=== PATIENT | female | born 1945 | race Caucasian/White ===

== ENCOUNTER 2018-07-05 16:10 | Inpatient (IN) | payer MEDICARE ==
[~2018-07-05] VITALS: Ht 152.4 cm; Wt 80.1 kg
--- NOTE | 2018-07-05 16:20 | NUR ---
REPORT RECEIVED CARE ASSUMED. 73 YR OLD FEMALE TRANSFERRED FROM [facility]. PT SEEN FOR GENERALIZED JOINT PAIN FOR 5 DAYS, "COULDNT TAKE IT ANY MORE" PT WAS HYPOTENSIVE. PT RECEIVED 3 L NS IN [facility] AND 500MLS NS IN [facility]. PT WITH OXYGEN [address] 20J IV IN LAC. DENIES PAIN " LONG I DONT MOVE. PT STATES THE "BACK OF MY HEAD FEELS LIKE I HAVE A 5 GALLON BUCKET OF WATER BACK THERE"
[2018-07-05] MEDS ORDERED: SODIUM CHLORIDE FLUSH 10ML SYR IVF ONE (16:30)
--- NOTE | 2018-07-05 16:49 | NUR ---
PT ASSISTED TO BSC. MOVES SLOWLY, INCREASED C/O PAIN WITH MOVEMENT. PT ABLE TO PROVIDE URINE SPECIMAN. LAB AT BEDSIDE TO DRAW LABS. PTS DAUGHTER AT BEDSIDE. UPDATED ON POC. NO OTHER NEEDS EXPRESSED AT THIS TIME.
[2018-07-05] MEDS ORDERED: SODIUM CHLORIDE FLUSH 10ML SYR IVF PRN (17:00)
[2018-07-05 17:07] LABS: MICROSCOPIC NOT IND
[2018-07-05 17:08] LABS: BASOPHILS # (AUTO) 0.03 x10^3/uL (0-0.1); BASOPHILS % (AUTO) 0 % (0-1); EOSINOPHILS # (AUTO) 0.04 x10^3/uL (0-0.4); EOSINOPHILS % (AUTO) 0 % (1-7); LYMPHOCYTES # (AUTO) 1.45 x10^3/uL (1-3.4); LYMPHOCYTES % (AUTO) 11 % (22-44); MD NO; MEAN CORPUSCULAR HEMOGLOBIN 28.1 pg (27.0-34.8); MEAN CORPUSCULAR VOLUME 87.9 fL (80-100); MEAN PLATELET VOLUME 6.9 fL (7.4-10.4); MONOCYTES # (AUTO) 0.98 x10^3/uL (0.2-0.8); MONOCYTES % (AUTO) 8 % (2-9); NEUTROPHILS # (AUTO) 10.39 x10^3/uL (1.8-6.8); NEUTROPHILS % (AUTO) 81 % (42-75); PLATELET COUNT 417 x10^3/uL (130-400); RED BLOOD COUNT 4.29 x10^6/uL (3.82-5.3); RED CELL DISTRIBUTION WIDTH 13.7 % (9.6-15.2)
[2018-07-05 17:08] LABS: CULTURE INDICATED? NO
[2018-07-05 17:10] LABS: HCT (SEDRATE) 37.4 % (34.6-47.8)
[2018-07-05] MEDS ORDERED: TRIA1TAB3 PO (17:11)
[2018-07-05] MEDS ORDERED: PRED10TA PO (17:11)
--- NOTE | 2018-07-05 17:11 | NUR ---
CALL PLACED TO [facility] [phone] TO CONFIRM PT PRESCRIPTIONS AND DOSAGES. PT STATES "I ONLY TAKE 1 BLOOD PRESSURE MEDICATION.
[2018-07-05 17:17] LABS: INTERNATIONAL NORMALIZED RATIO 1.08 (0.93-1.1); PROTHROMBIN TIME 11.4 Seconds (9.6-11.5)
[2018-07-05 17:19] LABS: ALBUMIN 2.9 g/dL (3.4-5.0); ANION GAP 11 mmol/L (5-15); CALCIUM 8.4 mg/dL (8.5-10.1); CHLORIDE 107 mmol/L (98-107)
[2018-07-05] MEDS ORDERED: MULT-290 PO (17:23)
[2018-07-05] MEDS ORDERED: ASPI-496 PO (17:23)
[2018-07-05 17:27] LABS: ALANINE AMINOTRANSFERASE 25 U/L (12-78); ALKALINE PHOSPHATASE 88 U/L (45-117); BILIRUBIN,TOTAL 0.5 mg/dL (0.2-1.0); CREATININE 1.45 mg/dL (0.55-1.02); TOTAL PROTEIN 6.6 g/dL (6.4-8.2)
--- NOTE | 2018-07-05 17:35 | NUR ---
PT DENIES TAKING DYAZIDE/HCTZ, TAKES LOSARTAN.
[2018-07-05] MEDS ORDERED: LOSA1TAB22 PO (17:36)
--- NOTE | 2018-07-05 18:56 | NUR ---
Report given to EMMA Rodriguez
--- NOTE | 2018-07-05 18:59 | NUR ---
BEDSIDE REPORT TO JULIO CARTER.
[2018-07-05] MEDS ORDERED: KETOROLAC 30 MG/1 ML ONE (19:19)
[2018-07-05] MEDS ORDERED: ONDANSETRON 2MG/ML, 2ML ONE (19:23)
[2018-07-05] MEDS ORDERED: ONDANSETRON 2MG/ML, 2ML IVPush ONE (19:30)
[2018-07-05] MEDS ORDERED: KETOROLAC 30 MG/1 ML IVPush ONE (19:30)
--- NOTE | 2018-07-05 20:41 | NUR ---
PT RESTING IN ROOM. PT PLACED ON AIR MATRESS FOR COMFORT. NO ACUTE DISTRES NOTED. CALL LIGHT IN PLACE. FAMILY AT BEDSIDE. WILL CONTINUE TO MONITOR.
--- NOTE | 2018-07-05 21:48 | NUR ---
Spoke with hospitalist waiting for orders.
--- NOTE | 2018-07-05 22:14 | NUR ---
PT HAS BEEN SEEN BY DR SAHA PT RESTING IN ROOM. REGULAR RESP. NO ACUTE. DISTRESS NOTED. CALL LIGHT IN PLACE. WILL CONTINUE TO MONITOR.
[2018-07-05] MEDS ORDERED: SODIUM CHLORIDE 0.9% 1,000 ML IV SCH (22:16)
[2018-07-05] MEDS ORDERED: ACETAMINOPHEN 500 MG TABLET PO PRN (22:30)
[2018-07-05 23:29] VITALS: BP 99/54
[2018-07-05] MEDS: ENOXAPARIN 40 MG/0.4 ML SQ SCH (23:52)
[2018-07-06 00:44] VITALS: BP 94/52
[2018-07-06 02:20] VITALS: BP 94/55
[2018-07-06 04:33] VITALS: BP 111/60
[2018-07-06 05:25] LABS: BASOPHILS # (AUTO) 0.03 x10^3/uL (0-0.1); BASOPHILS % (AUTO) 0 % (0-1); EOSINOPHILS # (AUTO) 0.35 x10^3/uL (0-0.4); EOSINOPHILS % (AUTO) 4 % (1-7); LYMPHOCYTES # (AUTO) 1.86 x10^3/uL (1-3.4); LYMPHOCYTES % (AUTO) 20 % (22-44); MD NO; MEAN CORPUSCULAR HEMOGLOBIN 29.5 pg (27.0-34.8); MEAN CORPUSCULAR HGB CONC 33.5 g/dL (32.4-35.8); MEAN CORPUSCULAR VOLUME 88.1 fL (80-100); MEAN PLATELET VOLUME 7.3 fL (7.4-10.4); MONOCYTES % (AUTO) 10 % (2-9); NEUTROPHILS # (AUTO) 6.13 x10^3/uL (1.8-6.8); NEUTROPHILS % (AUTO) 66 % (42-75); PLATELET COUNT 358 x10^3/uL (130-400); RED BLOOD COUNT 3.82 x10^6/uL (3.82-5.3); RED CELL DISTRIBUTION WIDTH 13.6 % (9.6-15.2)
[2018-07-06 05:37] LABS: CHLORIDE 108 mmol/L (98-107)
[2018-07-06 05:57] LABS: ALANINE AMINOTRANSFERASE 22 U/L (12-78); ALBUMIN 2.6 g/dL (3.4-5.0); ALKALINE PHOSPHATASE 79 U/L (45-117); ANION GAP 9 mmol/L (5-15); BILIRUBIN,TOTAL 0.3 mg/dL (0.2-1.0); CALCIUM 8.3 mg/dL (8.5-10.1); CREATINE KINASE, TOTAL 47 U/L (26-192); CREATININE 1.16 mg/dL (0.55-1.02); TOTAL PROTEIN 5.9 g/dL (6.4-8.2)
[2018-07-06] MEDS: ASPIRIN 81 MG TABLET EC PO SCH (06:22)
[2018-07-06] MEDS: ONDANSETRON ODT 4 MG PO PRN ×3 (06:22→19:53)
[2018-07-06] MEDS: KETOROLAC 30 MG/1 ML IVPush PRN ×3 (06:22→19:53)
[2018-07-06 06:34] VITALS: BP 117/61
[2018-07-06] MEDS: MULTIVITAMINS/MINERALS TABLET PO SCH (08:08)
[2018-07-06] MEDS ORDERED: TEMPLATE NON-FORMULARY MED. (Losartan/Hydrochlorothiazide** (Losartan-Hctz 100-25 Mg Tab PO SCH (09:00)
[2018-07-06 13:50] VITALS: BP 115/57
[2018-07-06 19:56] VITALS: BP 134/67
[2018-07-06] MEDS: SODIUM CHLORIDE 0.9% 1,000 ML IV SCH (20:52)
[2018-07-06] MEDS: ENOXAPARIN 40 MG/0.4 ML SQ SCH (23:23)
[2018-07-07 02:38] VITALS: BP 114/73
[2018-07-07] MEDS: ONDANSETRON ODT 4 MG PO PRN ×4 (04:28→23:47)
[2018-07-07] MEDS: KETOROLAC 30 MG/1 ML IVPush PRN ×4 (04:28→23:47)
[2018-07-07 05:15] LABS: ALBUMIN 2.5 g/dL (3.4-5.0); ANION GAP 8 mmol/L (5-15); CHLORIDE 111 mmol/L (98-107); CREATININE 0.94 mg/dL (0.55-1.02)
[2018-07-07] MEDS: ASPIRIN 81 MG TABLET EC PO SCH (05:53)
[2018-07-07 07:01] VITALS: BP 119/65
[2018-07-07] MEDS ORDERED: MAGNESIUM SULFATE PMX 2GM/50ML 50 ML IV ONE (07:30)
[2018-07-07] MEDS: MULTIVITAMINS/MINERALS TABLET PO SCH (08:50)
[2018-07-07] MEDS ORDERED: LIDOCAINE 1%, 10ML IM ONE (09:00)
[2018-07-07 12:40] VITALS: BP 107/61
[2018-07-07] MEDS: SODIUM CHLORIDE 0.9% 1,000 ML IV SCH (15:02)
[2018-07-07 18:43] VITALS: BP 134/75
[2018-07-07] MEDS: ENOXAPARIN 40 MG/0.4 ML SQ SCH (23:48)
[2018-07-08 00:24] VITALS: BP 128/67
[2018-07-08] MEDS: ASPIRIN 81 MG TABLET EC PO SCH (05:51)
[2018-07-08] MEDS: SODIUM CHLORIDE 0.9% 1,000 ML IV SCH ×3 (05:51→20:21)
[2018-07-08] MEDS: ONDANSETRON ODT 4 MG PO PRN ×2 (05:51→12:53)
[2018-07-08] MEDS: KETOROLAC 30 MG/1 ML IVPush PRN ×3 (05:51→20:21)
[2018-07-08 06:33] VITALS: BP 129/72
[2018-07-08] MEDS: MULTIVITAMINS/MINERALS TABLET PO SCH (08:59)
[2018-07-08 12:06] VITALS: BP 132/72
[2018-07-08] MEDS: POLYETHYLENE GLYCOL 17 GM PACKET PO PRN (17:54)
[2018-07-08] MEDS: ACETAMINOPHEN 500 MG TABLET PO SCH ×3 (17:54→21:15)
[2018-07-08 19:10] LABS: RAPID INFLUENZA A Negative (Negative); RAPID INFLUENZA B Negative (Negative)
[2018-07-08 19:36] VITALS: BP 129/78
[2018-07-08] MEDS: ENOXAPARIN 40 MG/0.4 ML SQ SCH (20:21)
[2018-07-08] MEDS: ONDANSETRON 2MG/ML, 2ML IVPush PRN (20:21)
[2018-07-09 01:40] VITALS: BP 149/78
[2018-07-09] MEDS: ASPIRIN 81 MG TABLET EC PO SCH (04:40)
[2018-07-09] MEDS: ONDANSETRON 2MG/ML, 2ML IVPush PRN ×3 (04:40→23:15)
[2018-07-09] MEDS: KETOROLAC 30 MG/1 ML IVPush PRN ×4 (04:40→23:15)
[2018-07-09 05:14] LABS: HCT (SEDRATE) 32.5 % (34.6-47.8)
[2018-07-09 06:28] VITALS: BP 154/73
[2018-07-09] MEDS: MULTIVITAMINS/MINERALS TABLET PO SCH (09:00)
[2018-07-09] MEDS: POLYETHYLENE GLYCOL 17 GM PACKET PO PRN (09:44)
[2018-07-09] MEDS: ACETAMINOPHEN 500 MG TABLET PO SCH ×3 (10:30→20:36)
[2018-07-09 12:04] VITALS: BP 166/73
[2018-07-09] MEDS: CARVEDILOL 3.125 MG TABLET PO SCH (16:48)
[2018-07-09] MEDS: ISOSORBIDE DINITRATE 10 MG TABLET PO SCH ×2 (16:48→20:36)
[2018-07-09] MEDS: SODIUM CHLORIDE 0.9% 1,000 ML IV SCH (16:55)
[2018-07-09] MEDS: SENNA/DOCUSATE TABLET PO PRN (17:28)
[2018-07-09] MEDS: ONDANSETRON ODT 4 MG PO PRN (17:28)
[2018-07-09 17:34] VITALS: BP 141/82
[2018-07-09 18:43] VITALS: BP 122/62
[2018-07-09] MEDS: ENOXAPARIN 40 MG/0.4 ML SQ SCH (20:35)
[2018-07-10 01:17] VITALS: BP 141/76
[2018-07-10] MEDS: ACETAMINOPHEN 500 MG TABLET PO SCH ×2 (04:30→10:53)
[2018-07-10 04:54] LABS: BASOPHILS # (AUTO) 0.05 x10^3/uL (0-0.1); BASOPHILS % (AUTO) 0 % (0-1); EOSINOPHILS % (AUTO) 5 % (1-7); LYMPHOCYTES % (AUTO) 19 % (22-44); MD NO; MEAN CORPUSCULAR HEMOGLOBIN 29.4 pg (27.0-34.8); MEAN CORPUSCULAR HGB CONC 33.5 g/dL (32.4-35.8); MEAN CORPUSCULAR VOLUME 87.7 fL (80-100); MEAN PLATELET VOLUME 6.6 fL (7.4-10.4); MONOCYTES % (AUTO) 6 % (2-9); NEUTROPHILS # (AUTO) 7.27 x10^3/uL (1.8-6.8); NEUTROPHILS % (AUTO) 71 % (42-75); PLATELET COUNT 410 x10^3/uL (130-400); RED CELL DISTRIBUTION WIDTH 13.8 % (9.6-15.2)
[2018-07-10] MEDS: ASPIRIN 81 MG TABLET EC PO SCH (05:05)
[2018-07-10] MEDS: CARVEDILOL 3.125 MG TABLET PO SCH (05:05)
[2018-07-10] MEDS: SENNA/DOCUSATE TABLET PO PRN (05:07)
[2018-07-10 06:47] VITALS: BP 135/73
[2018-07-10] MEDS: KETOROLAC 30 MG/1 ML IVPush PRN (08:00)
[2018-07-10] MEDS: ONDANSETRON 2MG/ML, 2ML IVPush PRN (08:00)
[2018-07-10] MEDS: ISOSORBIDE DINITRATE 10 MG TABLET PO SCH (08:07)
[2018-07-10] MEDS: MULTIVITAMINS/MINERALS TABLET PO SCH (08:08)
[2018-07-10] MEDS: SODIUM CHLORIDE 0.9% 1,000 ML IV SCH (08:09)
[2018-07-10] MEDS ORDERED: ISOS10TA2 PO ×2 (09:57)
[2018-07-10] MEDS ORDERED: HYDR2TAB29 PO (09:57)
[2018-07-10] MEDS ORDERED: HYDR-3341 PO ×2 (09:57)
[2018-07-10] MEDS ORDERED: CARV3.1212 PO (09:57)
[2018-07-10] MEDS ORDERED: NAPR-857 PO (09:57)
[2018-07-10] MEDS ORDERED: ACET500T71 PO (09:57)
[2018-07-10] MEDS ORDERED: PRED20TA PO (09:57)
[2018-07-10 15:46] LABS: ANA SCREEN POSITIVE (Negative)
[2018-07-10 15:47] LABS: ANTI-NUCLEAR ANTIBODY PATTERN SPECKLED
== END 2018-07-10 11:35 | disposition home or self-care (01) | DRG 545 ==
LOC: ED 16:22 → EDIP 16:53 → 3NE 23:04 → DCLOUNGE 07-10 11:19
PROVIDERS: ADMIT Hospitalist; ATTEND Hospitalist
PROC: 0SJD3ZZ Inspection of Left Knee Joint, Percutaneous Approach (ICD-10-PCS; principal; 2018-07-07)
DX: M02.362 Reiter's disease, left knee (principal); E43 Unspecified severe protein-calorie malnutrition; N17.9 Acute kidney failure, unspecified; E87.2 Acidosis; M17.12 Unilateral primary osteoarthritis, left knee; E66.9 Obesity, unspecified; E83.42 Hypomagnesemia; I10 Essential (primary) hypertension; J44.9 Chronic obstructive pulmonary disease, unspecified; D72.829 Elevated white blood cell count, unspecified; I95.9 Hypotension, unspecified; E88.09 Other disorders of plasma-protein metabolism, not elsewhere classified; M62.838 Other muscle spasm; Z88.0 Allergy status to penicillin; Z90.49 Acquired absence of other specified parts of digestive tract; Z68.34 Body mass index [BMI] 34.0-34.9, adult; Z74.01 Bed confinement status; Z87.891 Personal history of nicotine dependence
CPT/HCPCS: 10030; 36415; 80048; 80053; 81003; 82040; 82330; 82550; 83690; 83735; 84100; 84550; 85025; 85610; 85651; 85730; 86038; 86039; 86063; 86140; 86430; 86480; 86747; 87040; 87400; 93005; 93306; 96374; 96375; G0378; J1650; J1885; J2405; J3490; Q0162; J3475; J7030; J7512

== ENCOUNTER 2018-07-13 09:00 | Inpatient (IN) | payer MEDICARE ==
[~2018-07-13] VITALS: Ht 152.4 cm; Wt 72.5 kg
[~2018-07-13 09:00] MED LIST: ACET500T71 PO; ASPI-496 PO; CARV3.1212 PO; HYDR-3341 PO; HYDR2TAB29 PO; ISOS10TA2 PO; LOSA1TAB22 PO; MULT-290 PO; NAPR-857 PO; PRED10TA PO; PRED20TA PO; TRIA1TAB3 PO
--- NOTE | 2018-07-13 09:22 | NUR ---
FIRST CONTACT WITH PATIENT, PRESENTS WITH SOB AND BILAT LEG/FACIAL SWELLING. PATIENT DC'D FROM [facility] LAST . PATIENT ALSO REPORTS HIGH BP 212/93, AT HOME. PATIENT SITTING IN GURNEY, DAUGHTER AT BEDSIDE. ISABEL PEREZ COMPLETED. CALL LIGHT WITHIN REACH.
--- NOTE | 2018-07-13 09:28 | NUR ---
PATIENT AMB WITH SLOW STEADY GAIT TO BATHROOM WITH DAUGHTER. PATIENT BACK TO ROOM, GROUND SERVICES INSTRUCTOR AND SPO2 ON PATIENT. ANA.
[2018-07-13] MEDS ORDERED: FUROSEMIDE 40 MG/4 ML IV ONE (10:00)
[2018-07-13] MEDS ORDERED: NITROGLYCERIN OINT 2%, 1GM TP ONE ×2 (10:00→10:01)
[2018-07-13] MEDS ORDERED: FUROSEMIDE 40 MG/4 ML ONE (10:01)
--- NOTE | 2018-07-13 10:13 | NUR ---
NEW ORDERS, IV ESTABLISHED, MEDICATIONS ADMINISTERED PER MD ORDER, VS UPDATED IN CHART.
[2018-07-13 10:21] LABS: THYROID STIMULATING HORMONE 1.55 mIU/L (0.358-3.740)
[2018-07-13 10:25] LABS: MEAN CORPUSCULAR HEMOGLOBIN 29.5 pg (27.0-34.8); MEAN CORPUSCULAR HGB CONC 33.6 g/dL (32.4-35.8); MEAN CORPUSCULAR VOLUME 87.9 fL (80-100); MEAN PLATELET VOLUME 6.8 fL (7.4-10.4); PLATELET COUNT 485 x10^3/uL (130-400); RED BLOOD COUNT 3.91 x10^6/uL (3.82-5.3); RED CELL DISTRIBUTION WIDTH 14.4 % (9.6-15.2)
[2018-07-13 10:34] LABS: TROPONIN I < 0.015 ng/mL (0.000-0.045)
--- NOTE | 2018-07-13 10:45 | NUR ---
PATIENT AMB TO BATHROOM WITH DAUGHTER WITH SLOW STEADY GAIT, PATIENT BACK TO BED, NADTamiko.
[2018-07-13 10:54] LABS: BASOPHILS # (AUTO) 0.01 x10^3/uL (0-0.1); BASOPHILS % (AUTO) 0 % (0-1); EOSINOPHILS # (AUTO) 0.08 x10^3/uL (0-0.4); EOSINOPHILS % (AUTO) 1 % (1-7); LYMPHOCYTES # (AUTO) 1.18 x10^3/uL (1-3.4); LYMPHOCYTES % (AUTO) 8 % (22-44); MD SCAN; MONOCYTES # (AUTO) 0.28 x10^3/uL (0.2-0.8); MONOCYTES % (AUTO) 2 % (2-9); NEUTROPHILS # (AUTO) 12.74 x10^3/uL (1.8-6.8); NEUTROPHILS % (AUTO) 89 % (42-75)
[2018-07-13] MEDS ORDERED: NAPR220C2 PO (10:55)
[2018-07-13 11:03] LABS: ALANINE AMINOTRANSFERASE 68 U/L (12-78); ALBUMIN 3.4 g/dL (3.4-5.0); ANION GAP 7 mmol/L (5-15); CALCIUM 8.8 mg/dL (8.5-10.1); CHLORIDE 109 mmol/L (98-107); CREATININE 1.03 mg/dL (0.55-1.02)
[2018-07-13 11:05] LABS: ALKALINE PHOSPHATASE 109 U/L (45-117); BILIRUBIN,TOTAL 0.6 mg/dL (0.2-1.0); TOTAL PROTEIN 7.1 g/dL (6.4-8.2)
--- NOTE | 2018-07-13 11:27 | NUR ---
REPORT TO EMMA ABARCA.
[2018-07-13] MEDS ORDERED: GUAIFENESIN/DM 200-20MG, 10ML UDC PO PRN (11:30)
[2018-07-13] MEDS ORDERED: ONDANSETRON ODT 4 MG PO PRN (11:30)
[2018-07-13] MEDS ORDERED: LIDODERM 5% PATCH TD PRN (11:30)
[2018-07-13] MEDS ORDERED: ONDANSETRON 2MG/ML, 2ML IVPush PRN (11:30)
[2018-07-13] MEDS ORDERED: DOCUSATE 100 MG CAPSULE PO PRN (11:30)
[2018-07-13] MEDS ORDERED: ACETAMINOPHEN 325 MG TABLET PO PRN (11:30)
[2018-07-13] MEDS ORDERED: POLYETHYLENE GLYCOL 17 GM PACKET PO PRN (11:30)
[2018-07-13] MEDS ORDERED: TRAZODONE 50MG TABLET PO PRN (11:30)
[2018-07-13] MEDS ORDERED: hydrALAzine 20 MG/ML, 1ML IVPush PRN (11:30)
[2018-07-13] MEDS ORDERED: BISACODYL 10 MG SUPP PR PRN (11:30)
[2018-07-13 11:52] LABS: HCT (SEDRATE) 37.3 % (34.6-47.8)
[2018-07-13] MEDS ORDERED: NAPROXEN 250 MG TABLET PO PRN (12:00)
--- NOTE | 2018-07-13 12:00 | NUR ---
Yesi craig in [facility] - 07/13/18 at 1217 by FARIDA FABYAR REPORT RECEIVED FROM ADELE NOBLE
--- NOTE | 2018-07-13 12:00 | NUR ---
SBAR REPORT RECEIVED FROM BENITO CARTER.
--- NOTE | 2018-07-13 12:01 | NUR ---
PATIENT TRANSFERRED/ADMITTED TO HOSPITAL BED UPSTAIRS.
[2018-07-13 12:10] LABS: FREE T4 (FREE THYROXINE) 1.27 ng/dL (0.76-1.46); TROPONIN I < 0.015 ng/mL (0.000-0.045)
[2018-07-13 12:29] VITALS: BP_SYST 129
[2018-07-13 12:34] LABS: HEMOGLOBIN A1C 8.2 % (4.2-6.3)
[2018-07-13] MEDS: HEPARIN 5,000 UNITS/ML, 1ML SQ SCH ×2 (13:38→21:31)
[2018-07-13] MEDS: ACETAMINOPHEN 325 MG TABLET PO SCH ×2 (13:38→17:56)
[2018-07-13 17:51] LABS: TROPONIN I < 0.015 ng/mL (0.000-0.045)
[2018-07-13] MEDS: CARVEDILOL 3.125 MG TABLET PO SCH (17:56)
[2018-07-13] MEDS: FUROSEMIDE 40 MG/4 ML IV SCH (17:58)
[2018-07-13 18:08] VITALS: BP 169/75
[2018-07-13 19:40] VITALS: BP 132/67
[2018-07-14] VITALS (9 sets, daily range): BP systolic 129–180; BP diastolic 73–83
[2018-07-14] MEDS: CARVEDILOL 3.125 MG TABLET PO SCH ×2 (05:47→17:11)
[2018-07-14] MEDS: ACETAMINOPHEN 325 MG TABLET PO SCH ×4 (05:47→17:11)
[2018-07-14] MEDS: HEPARIN 5,000 UNITS/ML, 1ML SQ SCH ×3 (05:47→20:42)
[2018-07-14 06:00] LABS: BASOPHILS # (AUTO) 0.02 x10^3/uL (0-0.1); BASOPHILS % (AUTO) 0 % (0-1); EOSINOPHILS # (AUTO) 0.25 x10^3/uL (0-0.4); EOSINOPHILS % (AUTO) 2 % (1-7); LYMPHOCYTES # (AUTO) 3.89 x10^3/uL (1-3.4); LYMPHOCYTES % (AUTO) 32 % (22-44); MD NO; MEAN CORPUSCULAR HEMOGLOBIN 29.5 pg (27.0-34.8); MEAN CORPUSCULAR HGB CONC 33.5 g/dL (32.4-35.8); MEAN CORPUSCULAR VOLUME 88.1 fL (80-100); MEAN PLATELET VOLUME 6.6 fL (7.4-10.4); MONOCYTES # (AUTO) 0.68 x10^3/uL (0.2-0.8); MONOCYTES % (AUTO) 6 % (2-9); NEUTROPHILS # (AUTO) 7.52 x10^3/uL (1.8-6.8); NEUTROPHILS % (AUTO) 61 % (42-75); PLATELET COUNT 430 x10^3/uL (130-400); RED BLOOD COUNT 3.77 x10^6/uL (3.82-5.3); RED CELL DISTRIBUTION WIDTH 14.4 % (9.6-15.2)
[2018-07-14 06:10] LABS: CHLORIDE 106 mmol/L (98-107)
[2018-07-14 06:21] LABS: ANION GAP 7 mmol/L (5-15); CALCIUM 8.4 mg/dL (8.5-10.1); CHOLESTEROL, TOTAL 174 mg/dL (140-239); CREATININE 0.98 mg/dL (0.55-1.02); HDL CHOL % 20 % (28-40); HDL CHOLESTEROL (DIRECT) 35 mg/dL (40-60); LDL CHOLESTEROL,CALCULATED 97 mg/dL (54-169); LDL/HDL RATIO 2.8 (0.5-3.0); TRIGLYCERIDES 209 mg/dL (50-200); VLDL CHOLESTEROL 42 mg/dL (0-25)
[2018-07-14] MEDS: HYDROCHLOROTHIAZIDE 25 MG TABLET PO SCH (08:53)
[2018-07-14] MEDS: MULTIVITAMIN 1 TABLET PO SCH (08:54)
[2018-07-14] MEDS: ASPIRIN 81 MG TABLET EC PO SCH (08:54)
[2018-07-14] MEDS: LOSARTAN 50MG TABLET PO SCH (08:54)
[2018-07-14] MEDS: FUROSEMIDE 40 MG/4 ML IV SCH ×2 (08:55→16:10)
[2018-07-15] VITALS (8 sets, daily range): BP systolic 108–166; BP diastolic 64–84
[2018-07-15 05:51] LABS: BASOPHILS # (AUTO) 0.03 x10^3/uL (0-0.1); BASOPHILS % (AUTO) 0 % (0-1); EOSINOPHILS % (AUTO) 1 % (1-7); LYMPHOCYTES # (AUTO) 4.82 x10^3/uL (1-3.4); LYMPHOCYTES % (AUTO) 31 % (22-44); MD NO; MEAN CORPUSCULAR HEMOGLOBIN 29.2 pg (27.0-34.8); MEAN CORPUSCULAR HGB CONC 33.3 g/dL (32.4-35.8); MEAN CORPUSCULAR VOLUME 87.8 fL (80-100); MEAN PLATELET VOLUME 6.6 fL (7.4-10.4); MONOCYTES % (AUTO) 5 % (2-9); NEUTROPHILS # (AUTO) 9.71 x10^3/uL (1.8-6.8); NEUTROPHILS % (AUTO) 62 % (42-75); PLATELET COUNT 479 x10^3/uL (130-400); RED BLOOD COUNT 4.27 x10^6/uL (3.82-5.3); RED CELL DISTRIBUTION WIDTH 14.4 % (9.6-15.2)
[2018-07-15] MEDS: CARVEDILOL 3.125 MG TABLET PO SCH (05:55)
[2018-07-15] MEDS: HEPARIN 5,000 UNITS/ML, 1ML SQ SCH ×2 (05:55→14:00)
[2018-07-15] MEDS: ACETAMINOPHEN 325 MG TABLET PO SCH ×3 (05:56→11:17)
[2018-07-15 05:58] LABS: ANION GAP 9 mmol/L (5-15); CALCIUM 9.3 mg/dL (8.5-10.1); CHLORIDE 101 mmol/L (98-107); CREATININE 1.06 mg/dL (0.55-1.02)
[2018-07-15] MEDS ORDERED: POTASSIUM CHLORIDE 40 MEQ in SODIUM CHLORIDE 0.9% 500 ML IV ONE (07:30)
[2018-07-15] MEDS: LOSARTAN 50MG TABLET PO SCH (08:02)
[2018-07-15] MEDS: HYDROCHLOROTHIAZIDE 25 MG TABLET PO SCH (08:03)
[2018-07-15] MEDS: MULTIVITAMIN 1 TABLET PO SCH (08:03)
[2018-07-15] MEDS: FUROSEMIDE 40 MG/4 ML IV SCH (08:03)
[2018-07-15] MEDS: ASPIRIN 81 MG TABLET EC PO SCH (08:03)
[2018-07-15] MEDS ORDERED: HYDR-3343 PO (10:03)
[2018-07-15] MEDS ORDERED: FURO-93 PO (10:03)
== END 2018-07-15 14:09 | disposition home or self-care (01) | DRG 291 ==
LOC: ED 10:47 → EDIP 10:48 → 4EST 12:12
PROVIDERS: ADMIT Internal Medicine; ATTEND Internal Medicine
DX: I11.0 Hypertensive heart disease with heart failure (principal); I50.31 Acute diastolic (congestive) heart failure; E87.6 Hypokalemia; J44.9 Chronic obstructive pulmonary disease, unspecified; M19.90 Unspecified osteoarthritis, unspecified site; Z82.49 Family history of ischemic heart disease and other diseases of the circulatory system; Z87.891 Personal history of nicotine dependence; Z80.0 Family history of malignant neoplasm of digestive organs; Z90.49 Acquired absence of other specified parts of digestive tract; Z88.0 Allergy status to penicillin
CPT/HCPCS: 36415; 71045; 80048; 80053; 80061; 83036; 83735; 83880; 84439; 84443; 84484; 85025; 85651; 93005; 96374; G0378; J1644; J1940; J3480; J0360; J7040; J7512

== ENCOUNTER 2018-07-20 13:08 | Inpatient (IN) | payer MEDICARE ==
[~2018-07-20] VITALS: Ht 154.9 cm; Wt 62.7 kg
[~2018-07-20 13:08] MED LIST changes: +FURO-93 PO; +HYDR-3343 PO; +NAPR220C2 PO
--- NOTE | 2018-07-20 13:33 | NUR ---
pt to room from lobby
[2018-07-20] MEDS ORDERED: SODIUM CHLORIDE 0.9% 1,000ML IVBOLUS ONE (14:00)
[2018-07-20] MEDS ORDERED: ONDANSETRON 2MG/ML, 2ML IVPush ONE ×2 (14:00→16:00)
--- NOTE | 2018-07-20 14:00 | NUR ---
late entry for 1400: pt's spo2 is 89-92% on room air, oxygen applied at 2l/min via nc. no s/sx resp distress.
--- NOTE | 2018-07-20 14:20 | NUR ---
PT PRESENTS TO ED WITH C/O GENERALIZED ABD PAIN, N/V AND BRIGHT RED BLOOD PER RECTUM STARTING LAST NIGHT. PT ATTACHED TO BP AND SPO2 MONITORS. PIV PLACED. IVF INFUSING. PT AWAITING LABS, CT AND DISPO. PT INSTRUCTED TO PROVIDE STOOL SAMPLE IF ABLE. DAUGHTER AT BEDSIDE.
[2018-07-20 14:26] LABS: BASOPHILS % (AUTO) 0 % (0-1); EOSINOPHILS # (AUTO) 0.01 x10^3/uL (0-0.4); EOSINOPHILS % (AUTO) 0 % (1-7); LYMPHOCYTES # (AUTO) 1.05 x10^3/uL (1-3.4); LYMPHOCYTES % (AUTO) 9 % (22-44); MD NO; MEAN CORPUSCULAR HEMOGLOBIN 29.2 pg (27.0-34.8); MEAN CORPUSCULAR HGB CONC 33.1 g/dL (32.4-35.8); MEAN CORPUSCULAR VOLUME 88.2 fL (80-100); MEAN PLATELET VOLUME 7.1 fL (7.4-10.4); MONOCYTES # (AUTO) 0.16 x10^3/uL (0.2-0.8); MONOCYTES % (AUTO) 1 % (2-9); NEUTROPHILS # (AUTO) 10.28 x10^3/uL (1.8-6.8); NEUTROPHILS % (AUTO) 89 % (42-75); PLATELET COUNT 366 x10^3/uL (130-400); RED BLOOD COUNT 4.74 x10^6/uL (3.82-5.3); RED CELL DISTRIBUTION WIDTH 15.2 % (9.6-15.2)
[2018-07-20 14:33] LABS: INTERNATIONAL NORMALIZED RATIO 1.15 (0.93-1.1); PROTHROMBIN TIME 12.1 Seconds (9.6-11.5)
[2018-07-20] MEDS ORDERED: ONDANSETRON 2MG/ML, 2ML ONE ×2 (14:35→15:47)
[2018-07-20 14:37] LABS: ALBUMIN 3.4 g/dL (3.4-5.0); ANION GAP 6 mmol/L (5-15); CALCIUM 9.3 mg/dL (8.5-10.1); CHLORIDE 105 mmol/L (98-107)
[2018-07-20 14:40] LABS: ALANINE AMINOTRANSFERASE 36 U/L (12-78); ALKALINE PHOSPHATASE 65 U/L (45-117); BILIRUBIN,TOTAL 0.4 mg/dL (0.2-1.0); CREATININE 1.14 mg/dL (0.55-1.02)
--- NOTE | 2018-07-20 15:43 | NUR ---
PT RESTING ON GURNEY, RESPS EVEN AND UNLABORED. VSS. PT REPORTS PERSISTENT NAUSEA, NO VOMITING OR STOOL SO FAR DURING THIS VISIT. EDMD LEN AT BEDSIDE TO EXPLAIN RESULTS AND POC.
--- NOTE | 2018-07-20 15:53 | NUR ---
pt to be admitted, pt and family updated with POC. special contact precautions in place d/t pending stool studies. pt has yet to produce stool sample.
[2018-07-20] MEDS ORDERED: NAPR-685 PO (15:58)
[2018-07-20] MEDS ORDERED: ACET-1600 PO (15:58)
[2018-07-20] MEDS ORDERED: ONDANSETRON ODT 4 MG PO PRN (16:30)
[2018-07-20] MEDS ORDERED: ONDANSETRON 2MG/ML, 2ML IVPush PRN (16:30)
[2018-07-20] MEDS ORDERED: ZOLPIDEM 5MG TABLET PO PRN (16:30)
[2018-07-20] MEDS ORDERED: ACETAMINOPHEN 500 MG TABLET PO PRN (16:30)
[2018-07-20] MEDS ORDERED: ACETAMINOPHEN 325 MG TABLET PO PRN (16:30)
[2018-07-20] MEDS ORDERED: LIDODERM 5% PATCH TD PRN (16:30)
[2018-07-20] MEDS ORDERED: hydrALAzine 20 MG/ML, 1ML IVPush PRN (16:30)
[2018-07-20 16:46] LABS: FREE T4 (FREE THYROXINE) 1.35 ng/dL (0.76-1.46); THYROID STIMULATING HORMONE 0.962 mIU/L (0.358-3.740)
--- NOTE | 2018-07-20 16:51 | NUR ---
report given to EMMA Tyler. pt awaiting transport to room 407.
--- NOTE | 2018-07-20 17:06 | NUR ---
pt reports abd pain and nausea resolved. pt a&o, resps even and unlabored. skin pwd. daughter at bedside. awaiting transport to room 407 at this time. Addendum: 07/20/18 at 1732 by LIA pt reports abd pain and nausea resolved. pt a&o, resps even and unlabored. skin pwd. daughter at bedside. all monitors in place, pt is nsr on pvc monitor with no ectopy. awaiting transport to room 407 at this time.
--- NOTE | 2018-07-20 17:32 | NUR ---
pt transported to room 407 by EDT x 2, accompanied by daughter. fang at transport.
[2018-07-20 18:55] LABS: MICROSCOPIC AUTO
[2018-07-20 18:58] VITALS: BP 100/48
[2018-07-20 18:58] LABS: CULTURE INDICATED? YES
[2018-07-20 19:30] VITALS: BP 100/48
[2018-07-20] MEDS: HEPARIN 5,000 UNITS/ML, 1ML SQ SCH (20:04)
[2018-07-20] MEDS: SODIUM CHLORIDE 0.9% 1,000 ML IV SCH (20:05)
[2018-07-21 01:40] VITALS: BP 107/60
[2018-07-21] MEDS: HEPARIN 5,000 UNITS/ML, 1ML SQ SCH ×3 (04:58→20:38)
[2018-07-21] MEDS: ASPIRIN 81 MG TABLET EC PO SCH (04:58)
[2018-07-21 05:19] LABS: BASOPHILS # (AUTO) 0.01 x10^3/uL (0-0.1); BASOPHILS % (AUTO) 0 % (0-1); EOSINOPHILS # (AUTO) 0.07 x10^3/uL (0-0.4); EOSINOPHILS % (AUTO) 1 % (1-7); LYMPHOCYTES # (AUTO) 2.92 x10^3/uL (1-3.4); LYMPHOCYTES % (AUTO) 27 % (22-44); MD NO; MEAN CORPUSCULAR HEMOGLOBIN 29.4 pg (27.0-34.8); MEAN PLATELET VOLUME 7.1 fL (7.4-10.4); MONOCYTES # (AUTO) 0.91 x10^3/uL (0.2-0.8); MONOCYTES % (AUTO) 8 % (2-9); NEUTROPHILS # (AUTO) 6.98 x10^3/uL (1.8-6.8); NEUTROPHILS % (AUTO) 64 % (42-75); PLATELET COUNT 312 x10^3/uL (130-400); RED BLOOD COUNT 4.19 x10^6/uL (3.82-5.3); RED CELL DISTRIBUTION WIDTH 15.4 % (9.6-15.2)
[2018-07-21 05:30] LABS: ANION GAP 6 mmol/L (5-15); CALCIUM 7.9 mg/dL (8.5-10.1); CHLORIDE 109 mmol/L (98-107)
[2018-07-21 05:33] LABS: CHOL/HDL RATIO 4.1; CHOLESTEROL, TOTAL 136 mg/dL (140-239); HDL CHOL % 24 % (28-40); HDL CHOLESTEROL (DIRECT) 33 mg/dL (40-60); LDL CHOLESTEROL,CALCULATED 52 mg/dL (54-169); LDL/HDL RATIO 1.6 (0.5-3.0); TRIGLYCERIDES 255 mg/dL (50-200); VLDL CHOLESTEROL 51 mg/dL (0-25)
[2018-07-21] MEDS: SODIUM CHLORIDE 0.9% 1,000 ML IV SCH (06:19)
[2018-07-21 08:26] VITALS: BP 106/60
[2018-07-21] MEDS: PANTOPRAZOLE 40 MG IV IVPush SCH (08:54)
[2018-07-21] MEDS ORDERED: LEVOFLOXACIN 500 MG TABLET PO SCH (14:00)
[2018-07-21 15:59] VITALS: BP 122/59
[2018-07-21 20:17] VITALS: BP 131/68
[2018-07-22 01:53] VITALS: BP 115/63
[2018-07-22] MEDS: HEPARIN 5,000 UNITS/ML, 1ML SQ SCH (04:12)
[2018-07-22] MEDS: ASPIRIN 81 MG TABLET EC PO SCH (05:26)
[2018-07-22 06:04] LABS: BASOPHILS # (AUTO) 0.03 x10^3/uL (0-0.1); BASOPHILS % (AUTO) 0 % (0-1); EOSINOPHILS % (AUTO) 2 % (1-7); LYMPHOCYTES % (AUTO) 31 % (22-44); MD NO; MEAN CORPUSCULAR HEMOGLOBIN 29.4 pg (27.0-34.8); MEAN CORPUSCULAR HGB CONC 33.1 g/dL (32.4-35.8); MEAN CORPUSCULAR VOLUME 88.8 fL (80-100); MEAN PLATELET VOLUME 7.2 fL (7.4-10.4); MONOCYTES # (AUTO) 0.67 x10^3/uL (0.2-0.8); MONOCYTES % (AUTO) 8 % (2-9); NEUTROPHILS # (AUTO) 5.01 x10^3/uL (1.8-6.8); NEUTROPHILS % (AUTO) 58 % (42-75); PLATELET COUNT 300 x10^3/uL (130-400); RED BLOOD COUNT 3.92 x10^6/uL (3.82-5.3); RED CELL DISTRIBUTION WIDTH 15.7 % (9.6-15.2)
[2018-07-22 06:11] LABS: ANION GAP 5 mmol/L (5-15); CALCIUM 7.9 mg/dL (8.5-10.1); CHLORIDE 109 mmol/L (98-107); CREATININE 0.79 mg/dL (0.55-1.02)
[2018-07-22 07:33] VITALS: BP 101/59
[2018-07-22] MEDS: PANTOPRAZOLE 40 MG IV IVPush SCH (07:43)
[2018-07-22] MEDS ORDERED: LEVO500T47 PO (08:59)
[2018-07-22] MEDS ORDERED: PANT40TA3 PO (08:59)
== END 2018-07-22 09:48 | disposition home or self-care (01) | DRG 683 ==
LOC: ED 13:39 → EDIP 15:40 → 4WST 17:36
PROVIDERS: ADMIT Internal Medicine; ATTEND Internal Medicine
DX: N17.9 Acute kidney failure, unspecified (principal); I50.32 Chronic diastolic (congestive) heart failure; N39.0 Urinary tract infection, site not specified; K52.9 Noninfective gastroenteritis and colitis, unspecified; E86.0 Dehydration; I11.0 Hypertensive heart disease with heart failure; J44.9 Chronic obstructive pulmonary disease, unspecified; I95.9 Hypotension, unspecified; M19.90 Unspecified osteoarthritis, unspecified site; Z80.0 Family history of malignant neoplasm of digestive organs; Z87.891 Personal history of nicotine dependence; Z72.89 Other problems related to lifestyle; Z90.49 Acquired absence of other specified parts of digestive tract; Z88.0 Allergy status to penicillin
CPT/HCPCS: 36415; 74177; 80048; 80053; 80061; 81001; 83690; 84439; 84443; 85025; 85610; 85651; 87086; 87186; 96361; 96374; 96376; G0378; J1644; J2405; Q0162; C9113; J7030

== ENCOUNTER → 2018-09-17 | Outpatient (CLI) | payer MEDICARE ==
[~2018-09-17] MED LIST changes: +ACET-1600 PO; +LEVO500T47 PO; +NAPR-685 PO; +PANT40TA3 PO
== END | disposition home or self-care (01) ==
LOC: CFH 11:29
PROVIDERS: ATTEND Internal Medicine Cardiovascular Disease
DX: I25.9 Chronic ischemic heart disease, unspecified (principal); I10 Essential (primary) hypertension; Z87.891 Personal history of nicotine dependence
CPT/HCPCS: 78452; 93017; A9502

== ENCOUNTER 2018-09-18 12:28 | Outpatient (CLI) | payer MEDICARE | END 2018-09-18 23:59 | disposition home or self-care (01) | LOC: CARD 12:28 | PROVIDERS: ATTEND Internal Medicine Cardiovascular Disease | DX: J44.9 Chronic obstructive pulmonary disease, unspecified (principal); I10 Essential (primary) hypertension | CPT/HCPCS: 94060; 94726; 94729 ==

== ENCOUNTER 2018-10-15 09:27 | Day surgery (SDC) | payer MEDICARE ==
[~2018-10-15] VITALS: Ht 177.8 cm; Wt 68.2 kg
[2018-10-15] MEDS ORDERED: SODIUM CHLORIDE 0.9% 1,000 ML IV SCH ×2 (09:57→12:17)
[2018-10-15 09:59] VITALS: BP 188/101
[2018-10-15] MEDS ORDERED: ASPIRIN 325 MG TABLET EC PO ONE (10:00)
[2018-10-15] MEDS ORDERED: MULT-248 PO (10:11)
[2018-10-15] MEDS ORDERED: CARV3.1212 PO (10:11)
[2018-10-15] MEDS ORDERED: MELO7.5T31 PO (10:11)
[2018-10-15] MEDS ORDERED: LOSA1TAB25 PO (10:11)
[2018-10-15] MEDS ORDERED: ASPIRIN 325 MG TABLET EC ONE (10:18)
[2018-10-15] MEDS ORDERED: NITROGLYCERIN 5 MG/ML, 10ML ONE (11:18)
[2018-10-15] MEDS ORDERED: MIDAZOLAM 1 MG/ML, 5ML ONE (11:18)
[2018-10-15] MEDS ORDERED: VERAPAMIL 2.5 MG/ML, 2ML ONE (11:18)
[2018-10-15] MEDS ORDERED: FENTANYL PF 100 MCG/2ML ONE ×2 (11:18→11:39)
[2018-10-15] MEDS ORDERED: HEPARIN 1,000 UNITS/ML, 10ML ONE (11:19)
[2018-10-15] MEDS ORDERED: LIDOCAINE-MPF 1%, 5ML ONE (11:19)
== END 2018-10-15 15:03 | disposition home or self-care (01) ==
LOC: CACL 09:27
PROVIDERS: ATTEND Internal Medicine Cardiovascular Disease
DX: I25.10 Atherosclerotic heart disease of native coronary artery without angina pectoris (principal); I10 Essential (primary) hypertension; Z79.82 Long term (current) use of aspirin
CPT/HCPCS: 93458; 93571; 99156; C1769; C1887; C1894; J1644; J2250; J3010; Q9967

== ENCOUNTER 2019-12-05 12:43 | Day surgery (SDC) | payer MEDICARE ==
[~2019-12-05] VITALS: Ht 152.4 cm; Wt 70.5 kg
[~2019-12-05 12:43] MED LIST changes: +ACET500T64 PO; -ACET500T71 PO; +LOSA1TAB25 PO; +MELO7.5T31 PO; +MULT-248 PO
[2019-12-05] MEDS ORDERED: SODIUM CHLORIDE 0.9% 1,000 ML IV SCH (12:56)
[2019-12-05] MEDS ORDERED: FURO20TA3 PO (13:14)
[2019-12-05] MEDS ORDERED: LOSA100T14 PO (13:14)
[2019-12-05] MEDS ORDERED: CARV6.2512 PO (13:14)
[2019-12-05 13:15] VITALS: BP 127/86
[2019-12-05] MEDS ORDERED: ROSU20TA2 PO (13:15)
[2019-12-05 13:36] LABS: BASOPHILS # (AUTO) 0.03 x10^3/uL (0-0.1); BASOPHILS % (AUTO) 0 % (0-1); EOSINOPHILS # (AUTO) 0.13 x10^3/uL (0-0.4); EOSINOPHILS % (AUTO) 1 % (1-7); LYMPHOCYTES # (AUTO) 1.71 x10^3/uL (1-3.4); LYMPHOCYTES % (AUTO) 17 % (22-44); MD NO; MEAN CORPUSCULAR HEMOGLOBIN 30.3 pg (27.0-34.8); MEAN CORPUSCULAR HGB CONC 32.9 g/dL (32.4-35.8); MEAN CORPUSCULAR VOLUME 92.1 fL (80-100); MEAN PLATELET VOLUME 7.3 fL (7.4-10.4); MONOCYTES # (AUTO) 0.95 x10^3/uL (0.2-0.8); MONOCYTES % (AUTO) 10 % (2-9); NEUTROPHILS # (AUTO) 7.11 x10^3/uL (1.8-6.8); NEUTROPHILS % (AUTO) 72 % (42-75); PLATELET COUNT 358 x10^3/uL (130-400); RED BLOOD COUNT 4.93 x10^6/uL (3.82-5.3); RED CELL DISTRIBUTION WIDTH 13.9 % (9.6-15.2)
[2019-12-05 13:38] LABS: ANION GAP 10 mmol/L (5-15); CALCIUM 9.1 mg/dL (8.5-10.1); CHLORIDE 104 mmol/L (98-107); CREATININE 1.06 mg/dL (0.55-1.02)
[2019-12-05] MEDS ORDERED: MIDAZOLAM 1 MG/ML, 5ML ONE (15:30)
[2019-12-05] MEDS ORDERED: FENTANYL PF 100 MCG/2ML ONE (15:30)
[2019-12-05] MEDS ORDERED: LIDOCAINE 2%, 20ML ONE (15:31)
[2019-12-05] MEDS ORDERED: HEPARIN 1,000 UNITS/ML, 10ML ONE (15:31)
[2019-12-05] MEDS ORDERED: VERAPAMIL 2.5 MG/ML, 2ML ONE (15:31)
[2019-12-05] MEDS ORDERED: BIVALIRUDIN 250 MG ONE (15:31)
== END 2019-12-05 18:42 | disposition home or self-care (01) ==
LOC: CACL 12:43
PROVIDERS: ATTEND Internal Medicine Cardiovascular Disease
DX: I34.2 Nonrheumatic mitral (valve) stenosis (principal); Z11.59 Encounter for screening for other viral diseases; R06.00 Dyspnea, unspecified; I25.10 Atherosclerotic heart disease of native coronary artery without angina pectoris; I25.83 Coronary atherosclerosis due to lipid rich plaque; I10 Essential (primary) hypertension; E78.2 Mixed hyperlipidemia; Z79.1 Long term (current) use of non-steroidal anti-inflammatories (NSAID); Z79.82 Long term (current) use of aspirin; Z79.899 Other long term (current) drug therapy; Z88.0 Allergy status to penicillin
CPT/HCPCS: 36415; 80048; 85025; 93005; 93460; 99156; 99157; C1769; C1894; J2250; J3010; Q9967; J0583; J1644

== ENCOUNTER 2019-12-13 05:58 | Day surgery (SDC) | payer MEDICARE ==
[~2019-12-13] VITALS: Ht 152.4 cm; Wt 70.5 kg
[~2019-12-13 05:58] MED LIST changes: +CARV6.2512 PO; +FURO20TA3 PO; +LOSA100T14 PO; +ROSU20TA2 PO
[2019-12-13 06:13] VITALS: BP 114/72
[2019-12-13] MEDS ORDERED: SODIUM CHLORIDE 0.9% 1,000 ML IV SCH (06:30)
[2019-12-13] MEDS ORDERED: PHENYLEPHRINE 10 MG/ML ONE (07:40)
[2019-12-13] MEDS ORDERED: PROPOFOL 10 MG/ML, 20ML ONE (08:02)
== END 2019-12-13 09:16 | disposition home or self-care (01) ==
LOC: CACL 05:58
PROVIDERS: ATTEND Internal Medicine Cardiovascular Disease
DX: I08.0 Rheumatic disorders of both mitral and aortic valves (principal); Z11.59 Encounter for screening for other viral diseases; I70.0 Atherosclerosis of aorta; I25.10 Atherosclerotic heart disease of native coronary artery without angina pectoris; I10 Essential (primary) hypertension; E78.2 Mixed hyperlipidemia; Z79.82 Long term (current) use of aspirin; Z79.899 Other long term (current) drug therapy
CPT/HCPCS: 36415; 87635; 93312; 93321; 93325; J2370; J2704

== ENCOUNTER → 2019-12-25 | Outpatient (CLI) | payer MEDICARE ==
[2019-12-25 11:18] LABS: CHLORIDE 107 mmol/L (98-107)
[2019-12-25 11:27] LABS: ANION GAP 4 mmol/L (5-15); CALCIUM 9.3 mg/dL (8.5-10.1); CREATININE 1.23 mg/dL (0.55-1.02)
== END | disposition home or self-care (01) ==
LOC: CFH 09:39
PROVIDERS: ATTEND Nurse Practitioner Family
DX: I25.10 Atherosclerotic heart disease of native coronary artery without angina pectoris (principal); I10 Essential (primary) hypertension; E78.2 Mixed hyperlipidemia; I34.2 Nonrheumatic mitral (valve) stenosis; R06.02 Shortness of breath
CPT/HCPCS: 36415; 80048; 83880

== ENCOUNTER → 2020-03-04 | Outpatient (CLI) | payer MEDICARE | END | disposition home or self-care (01) | LOC: CVU 07:21 | PROVIDERS: ATTEND Internal Medicine Cardiovascular Disease | DX: I65.23 Occlusion and stenosis of bilateral carotid arteries (principal); I10 Essential (primary) hypertension; I25.10 Atherosclerotic heart disease of native coronary artery without angina pectoris; J44.9 Chronic obstructive pulmonary disease, unspecified | CPT/HCPCS: 93880 ==